=== PATIENT | male | born 1955 | race Caucasian/White ===

== ENCOUNTER 2022-11-01 15:46 | Emergency (ER) | payer OTHER, SELFPAY ==
--- NOTE | ~2022-11-01 | XR_ITS ---
EXAMINATION: XR SOFT TISSUE NECK CLINICAL INDICATION: Foreign body evaluation. Patient at dentist when object fell into throat. COMPARISON: None available. TECHNIQUE: 2 views of the soft tissue neck were obtained. FINDINGS: A metallic instrument of 2.9 cm in length is seen within the neck at the level of the right vallecula. There are no other foreign bodies within soft tissues of the neck or upper chest. No soft tissue emphysema or pneumomediastinum. The epiglottis and aryepiglottic folds are normal. The cervical vertebra have normal height and alignment. No prevertebral soft tissue swelling. Mild and moderate discovertebral degenerative changes are seen within the visualized cervical and thoracic spine. XR/XR soft tissue neck IMPRESSION: The metallic foreign body appears to be within the right vallecula.
--- NOTE | ~2022-11-01 | XR_ITS ---
EXAMINATION: XR CHEST 2 VIEW CLINICAL INFORMATION: Swallowed dental stephen COMPARISON: None TECHNIQUE: PA and lateral views of the chest obtained. FINDINGS: The lungs are clear. There are no pleural effusions. The cardiomediastinal silhouette is normal. No radiopaque foreign body is detected. XR/XR chest 2V IMPRESSION: No acute cardiopulmonary disease.
--- NOTE | ~2022-11-01 | XR_ITS ---
EXAMINATION: XR ABDOMEN KUB CLINICAL INDICATION: Swallowed dental stephen COMPARISON: None available. TECHNIQUE: AP view of the abdomen. FINDINGS: The bowel gas pattern is normal with no evidence of ileus or obstruction. No unusual soft tissue calcifications are noted. The bones are unremarkable. No radiopaque foreign body. There are splenic artery calcifications. A clip is noted in the left lower quadrant of the abdomen. XR/XR KUB IMPRESSION: Unremarkable examination. No radiopaque foreign body.
[2022-11-01 15:53] VITALS: BP 169/61; PULSE 74; RESP 18; TEMP 37.1; O2SAT 96; BMI 34.0
--- NOTE | 2022-11-01 15:55 | ED_ITS ---
HPI - Skin/Abscess/Foreign Bdy General Chief complaint: Dental/Oral Stated complaint: ?swallowed a dental but..sent from office Time Seen by Provider: 11/01/22 18:27 Related Data Allergies Allergy/AdvReac Type Severity Reaction Status Date / Time No Known Allergies Allergy Verified 11/01/22 15:56 Review of Systems 2 Constitutional: Constitutional: Reports no additional constitutional complaints Eyes: Eyes: Reports no additional eye complaints ENT: Denies dysphagia, Denies hoarseness, Denies odynophagia, Reports sore throat, Denies throat swelling and Denies tongue swelling Cardiovascular: Cardiovascular: Reports no additional cardiovascular complaints Respiratory: Respiratory: Reports no additional respiratory complaints Gastrointestinal: Gastrointestinal: Denies dysphagia and Denies odynophagia Musculoskeletal: Musculoskeletal: Reports no additional musculoskeletal complaints Allergic/Immunologic: Allergic/Immunologic: Denies throat swelling and Denies tongue swelling PMFSH Social History Social History Advance Directives: No Advance Directives Information Provided: No Physical Exam 2 Vital Signs: Vital Signs: Last Vital Signs Temp 98.7 F 11/01/22 15:53 Pulse 74 11/01/22 15:53 Resp 18 11/01/22 15:53 BP 169/61 H 11/01/22 15:53 Pulse Ox 96 11/01/22 15:53 O2 Del Method Room Air 11/01/22 15:53 BMI result Body Mass Index 34.0 Const: General: healthy appearing, no acute distress and well developed N utritional Appearance: well nourished Orientation/consciousness: patient oriented x3 HEENT: Head: Yes normal to inspection, Yes normocephalic and Yes atraumatic Face and sinus: Yes normal facial exam Mouth: Normal oral and palatal mucosa present Throat: Yes posterior oropharynx normal, Yes tonsils normal and Yes uvula midline Eyes: General: appearance normal, both eyes and all related structures Neck: Neck: Yes normal visual inspection, Yes full ROM and Yes trachea midline Thyroid: Thyroid normal Resp: Effort & Inspection: normal respiratory effort, able to speak in complete sentences, no tracheal deviation and symmetric chest movement A uscultation: clear to auscultation bilaterally Cardio: Rate: regular rate Heart sounds: S1 normal heart sound present and S2 normal heart sound present GI: Inspection: Yes normal to inspection and No distended Palpation (GI): S oft to palpation, not firm, nontender and No hepatosplenomegaly present A uscultation: normal bowel sounds : General: Yes no CVA tenderness Back/Spine/Pelvis: Back: no CVA tenderness Skin: General skin exam: elasticity normal, turgor normal and dry skin Neuro: General: patient oriented x3 Psych: Appearance: grossly normal Mental Status: mental status grossly normal Speech and movement: Normal speech and movement present Course Course Course Narrative: SHELLEY15:55PM - 67yoM with a PMHx of diabetes and hypertension who is presenting to the ER after he was referred by [facility] dental Dr. Albright [phone] sent him here due to he accidentally swallowed a dental bur prior to arrival while she was doing dental extraction. She is very concerned reports that she knows he swallowed and will need surgery. He denies any symptoms at this time. He has not eaten or drank her anything. Plan: Labs, EKG, chest x-ray and KUB patient will be seen in the ED for further evaluation treatment. 67-year-old male with past medical history of hypertension, diabetes is he here today after sent by his dentist for possible dental bur lodged in his throat, questioning passing to small bowel. KUB and chest x-ray evaluated and negative for foreign body. Patient reports that he feels something in his throat. Will send him for soft tissue neck x-ray. Patient is not drooling. Able to swallow saliva without any issues. Throat examined, no foreign object seen in the oropharynx. Patient's last meal was at noon time. Patient denies any nausea or vomiting. Patient reports that he had no bowel movement since his dental procedure. Reevaluation(s) Reevaluation #1: reviewed patient x-ray of soft tissue neck and foreign body noted in patient's throat. Spoke with Dr. Zarate, call out to photo lab manager Dr. Hopkins who will come in to do upper endoscopy. Spoke with patient. Patient continues to feel occasionally object in his throat. Patient continues to have no dysphagia or odynophagia. Has been NPO for over 7 hours now. Medical Decision Making Lab Data 11/01/22 16:23 11/01/22 16:23 Labs: Lab Results 11/01/22 11/01/22 Range/Units 16:20 16:23 WBC 8.0 (4.8-10.8) X10*3/uL RBC 4.94 (4.60-5.80) X10*6/uL Hgb 14.7 (14.0-18.0) g/dl Hct 42.0 (42.0-52.0) % MCV 85.0 (80.0-98.0) fL MCH 29.8 (27.0-33.0) pg MCHC 35.0 (31.0-36.0) g/dl RDW 12.3 (11.0-16.0) % Plt Count 200 (160-400) X10*3/uL MPV 10.2 (9.4-12.4) fL Immature Gran % (Auto) 0.3 (0.0-0.4) % Neut % (Auto) 54.9 (45-73) % Lymph % (Auto) 34.2 (20-40) % [place] % (Auto) 8.0 (2-11) % Eos % (Auto) 1.1 (0-4) % Baso % (Auto) 1.5 (0-2) % Lymph # (Auto) 2.7 (1.2-4.9) X10*3/uL [place] # (Auto) 0.6 (0.1-1.2) X10*3/uL Eos # (Auto) 0.1 (0.0-0.4) X10*3/uL Baso # (Auto) 0.1 (0.0-0.2) X10*3/uL Abs Immat Gran (auto) 0.02 (0.00-0.03) X10*3/uL Absolute Neuts (auto) 4.4 (2.0-8.3) x10*3/uL Absolute Nucleated RBC 0.000 (0.0-0.012) X10*3/uL Nucleated RBC % (auto) 0.0 (0.0-0.2) /100WBC PT 12.1 (11.1-13.3) SEC INR 1.0 (0.9-1.1) Sodium 142 (135-145) mmol/L Potassium 3.6 (3.3-5.1) mmol/L Chloride 105 (96-108) mmol/L Carbon Dioxide 29 (22-29) mmol/L Anion Gap 12 (12-20) BUN 35 H (9-16) mg/dL Creatinine 1.47 H (0.5-1.4) mg/dL Estim Creat Clear Calc 56.4 Estimated GFR 47 Random Glucose 142 H (60-115) mg/dL Calcium 8.8 (8.4-10.2) mg/dL Magnesium 2.0 (1.6-2.6) mg/dL Total Bilirubin 0.5 (0.0-1.0) mg/dL AST 23 (5-37) U/L ALT 20 (0-40) U/L Alkaline Phosphatase 83 (39-117) U/L Total Protein 6.9 (6.5-8.0) g/dL Albumin 3.5 (3.5-5.0) g/dL COVID-19 (EVETTE) Negative (Negative) COVID-19 Clin Com See Note Independent Interpretation I performed an independent interpretation of an: Plain X-Ray Radiology Impression Discussion of test interpretation with radiology: I have reviewed the radiologist's reading. Radiologist Impression: FINDINGS: The lungs are clear. There are no pleural effusions. The cardiomediastinal silhouette is normal. No radiopaque foreign body is detected. XR/XR chest 2V IMPRESSION: FINDINGS: The bowel gas pattern is normal with no evidence of ileus or obstruction. No unusual soft tissue calcifications are noted. The bones are unremarkable. No radiopaque foreign body. There are splenic artery calcifications. A clip is noted in the left lower quadrant of the abdomen. XR/XR KUB IMPRESSION: Unremarkable examination. No radiopaque foreign body. No acute cardiopulmonary disease. Discharge Plan Discharge Clinical Impression: Foreign body (FB) in soft tissue Patient Disposition: Still a Patient Instructions: Soft Tissue Foreign Body (ED)
--- NOTE | 2022-11-01 15:57 | ECG_ITS ---
Test Reason : MEDICAL CLEARENCE Blood Pressure : / mmHG Vent. Rate : 069 BPM Atrial Rate : 069 BPM P-R Int : 212 ms QRS Dur : 104 ms QT Int : 420 ms P-R-T Axes : 026 010 107 degrees QTc Int : 450 ms Sinus rhythm with 1st degree A-V block Minimal voltage criteria for LVH, may be normal variant ( Forest product ) T wave abnormality, consider lateral ischemia Abnormal ECG No previous ECGs available Referred By: Liliya Perry Electronically Signed By:CORINNE MARY
[2022-11-01 16:31] LABS: MANUAL DIFF FLAG NO
[2022-11-01 16:44] LABS: Basophils Absolute Auto 0.1 X10*3/uL (0.0-0.2); Basophils Percent Auto 1.5 % (0-2); Eosinophils Absolute Auto 0.1 X10*3/uL (0.0-0.4); Eosinophils Percent Auto 1.1 % (0-4); Hemoglobin 14.7 g/dl (14.0-18.0); Imm Gran Abs Auto 0.02 X10*3/uL (0.00-0.03); Imm Gran Pct Auto 0.3 % (0.0-0.4); Lymphocytes Absolute Auto 2.7 X10*3/uL (1.2-4.9); Lymphocytes Percent Auto 34.2 % (20-40); Mean Corpuscular Hemoglobin 29.8 pg (27.0-33.0); Mean Platelet Volume 10.2 fL (9.4-12.4); Monocytes Absolute Auto 0.6 X10*3/uL (0.1-1.2); Neutrophils Absolute Auto 4.4 x10*3/uL (2.0-8.3); Neutrophils Percent Auto 54.9 % (45-73); Platelet Count 200 X10*3/uL (160-400); Red Blood Count 4.94 X10*6/uL (4.60-5.80); Red Cell Distribution Width 12.3 % (11.0-16.0)
[2022-11-01 16:47] LABS: Prothrombin Time 12.1 SEC (11.1-13.3)
[2022-11-01 16:48] LABS: Alanine Aminotransferase 20 U/L (0-40); Albumin Level 3.5 g/dL (3.5-5.0); Alkaline Phosphatase 83 U/L (39-117); Anion Gap 12 (12-20); Aspartate Amino Transferase 23 U/L (5-37); Bilirubin Total 0.5 mg/dL (0.0-1.0); Blood Urea Nitrogen 35 mg/dL (9-16); Calcium 8.8 mg/dL (8.4-10.2); Carbon Dioxide 29 mmol/L (22-29); Chloride 105 mmol/L (96-108); Creatinine Clr Calc Pharmacy 56.4; Estimated Glomerular Filt Rate 47; Glucose Random 142 mg/dL (60-115); Potassium 3.6 mmol/L (3.3-5.1); Sodium 142 mmol/L (135-145); Total Protein 6.9 g/dL (6.5-8.0)
[2022-11-01 17:05] LABS: COVID-19 Test Negative (Negative); IDNOW Serial# 08D9AD1C
--- NOTE | 2022-11-01 19:04 | PC.NURSE ---
provider BOTTOM SPRAYER went to bed to eber pt- md perez spoke w provider to discuss. pt airway intact. talking. +CMS
[2022-11-01 19:50] VITALS: BP 178/86; PULSE 64; RESP 16; TEMP 36.7; O2SAT 98
--- NOTE | 2022-11-01 20:07 | HO.ANESPROP2 ---
[facility] Active Problems Active Problems: All Active Problems (Updated 11/01/22 @ 19:26 by Chiara Morrow, [facility]) Foreign body (FB) in soft tissue (Acute) diabetes,high blood pressure Past Medical History Functional capacity: independent ambulation Family History Family history of problems with anesthesia: No Surgical History History of Problems with Anesthesia: No Social History Social History Advance Directives: No Advance Directives Information Provided: No Meds Allergies Allergy/AdvReac Type Severity Reaction Status Date / Time No Known Allergies Allergy Verified 11/01/22 15:56 Exam Exam Date and Time: November 01, 20222006 Height,Weight and Vital Signs: Height 5 ft 9 in Weight 104.326 kg Last Vital Signs Temp 98.0 F 11/01/22 19:50 Pulse 64 11/01/22 19:50 Resp 16 11/01/22 19:50 BP 178/86 H 11/01/22 19:50 Pulse Ox 98 11/01/22 19:50 O2 Del Method Room Air 11/01/22 19:50 Pertinent Lab Results Pertinent Lab Results: Laboratory Tests 11/01/22 11/01/22 16:20 16:23 WBC 8.0 RBC 4.94 Hgb 14.7 Hct 42.0 MCV 85.0 MCH 29.8 MCHC 35.0 RDW 12.3 Plt Count 200 MPV 10.2 Immature Gran % (Auto) 0.3 Neut % (Auto) 54.9 Lymph % (Auto) 34.2 [place] % (Auto) 8.0 Eos % (Auto) 1.1 Baso % (Auto) 1.5 Lymph # (Auto) 2.7 [place] # (Auto) 0.6 Eos # (Auto) 0.1 Baso # (Auto) 0.1 Abs Immat Gran (auto) 0.02 Absolute Neuts (auto) 4.4 Absolute Nucleated RBC 0.000 Nucleated RBC % (auto) 0.0 PT 12.1 INR 1.0 Sodium 142 Potassium 3.6 Chloride 105 Carbon Dioxide 29 Anion Gap 12 BUN 35 H Creatinine 1.47 H Estim Creat Clear Calc 56.4 Estimated GFR 47 Random Glucose 142 H Calcium 8.8 Magnesium 2.0 Total Bilirubin 0.5 AST 23 ALT 20 Alkaline Phosphatase 83 Total Protein 6.9 Albumin 3.5 COVID-19 (EVETTE) Negative COVID-19 Clin Com See Note Airway Mallampati Class: II TM Dist: >3cm Neck ROM: Full Heart: RRR Lungs: CTA Assessment and Plan Final Anesthetic Review Family History of Problems with Anesthesia: No History of Problems with Anesthesia: No NPO: Yes ASA Class: II and Emergency Final Preanesthetic Review: Meds/Allgs Chart Reviewed, Consent Obtained/Reviewed and Anes Risks/Benef Reviewed Patient Risk: Low Procedure Risk: Low Anesthetic Plan Anesthetic Plan: GA Disposition: Standard PACU
--- NOTE | 2022-11-01 20:15 | PC.NURSE ---
attempted x2 by rn- asked actuarial intern to attempt. pt changed into pt gown and belongings sheet done
--- NOTE | 2022-11-01 20:20 | PC.NURSE ---
gave report to jewel hole cornerer
--- NOTE | 2022-11-01 20:35 | P.CNGI_ITS ---
History of Present Illness Data of Consult Service Date: 11/01/22 Requesting physician: Karla Zarate Primary Care Provider: Neelima Doyle MD HPI 67-year-old male with hypertension, diabetes sent to [facility] by his dentist for possible dental bur lodged in his throat, questioning passing to small bowel. KUB and chest x-ray evaluated and negative for foreign body. Patient reports that he feels something in his throat. Able to swallow saliva without any issues. Throat examined, no foreign object seen in the oropharynx. Patient's last meal was at noon time. Patient denies any nausea or vomiting. Patient reports that he had no bowel movement since his dental procedure. Pt denies snoring or sleep apnea. XRAY SOFT TISSUES OF NECK SHOWED: A metallic instrument of 2.9 cm in length is seen within the neck at the level of the right vallecula. There are no other foreign bodies within soft tissues of the neck or upper chest. No soft tissue emphysema or pneumomediastinum. The epiglottis and aryepiglottic folds are normal. Review of Systems 2 Review of Systems: Yes all other systems are reviewed and are negative [facility] Social History Social History Advance Directives: No Advance Directives Information Provided: No Meds Allergies Allergy/AdvReac Type Severity Reaction Status Date / Time No Known Allergies Allergy Verified 11/01/22 15:56 Physical Exam 2 Vital Signs: Vital Signs: Last Vital Signs Temp 98.0 F 11/01/22 19:50 Pulse 64 11/01/22 19:50 Resp 16 11/01/22 19:50 BP 178/86 H 11/01/22 19:50 Pulse Ox 98 11/01/22 19:50 O2 Del Method Room Air 11/01/22 19:50 BMI result Body Mass Index 34.0 Const: General: healthy appearing and no acute distress Nutritional Appearance: obese Orientation/consciousness: patient oriented x3 L imitations: no limitations HEENT: Head: Yes normal to inspection Ears: hearing grossly normal bilaterally Mouth: Normal oral and palatal mucosa present Eyes: Sclerae: sclerae normal Pupils: Equal, round and reactive pupils present Neck: Neck: Yes normal visual inspection Chest: Chest palpation & inspection: normal inspection of the chest Resp: Effort & Inspection: normal respiratory effort Auscultation: clear to auscultation bilaterally Cardio: Palpation: normal PMI Rate: regular rate Rhythm: regular rhythm Heart sounds: S1 normal heart sound present, S2 normal heart sound present and no murmurs GI: Palpation (GI): Soft to palpation, nontender and No hepatosplenomegaly present Auscultation: normal bowel sounds Rectal Exam - Male: Yes deferred Skin: General skin exam: no rashes or lesions noted Neuro: General: patient oriented x3, gait normal and moves all extremities Cranial nerves: Yes Equal, round and reactive pupils present Psych: Appearance: grossly normal Mental Status: mental status grossly normal Results Labs 11/01/22 16:23 11/01/22 16:23 Labs: Short CBC 11/01/22 Range/Units 16:23 WBC 8.0 (4.8-10.8) X10*3/uL Hgb 14.7 (14.0-18.0) g/dl Hct 42.0 (42.0-52.0) % Plt Count 200 (160-400) X10*3/uL BMP 11/01/22 16:23 Sodium 142 Potassium 3.6 Chloride 105 Carbon Dioxide 29 BUN 35 H Creatinine 1.47 H Calcium 8.8 Liver Function 11/01/22 Range/Units 16:23 Total Bilirubin 0.5 (0.0-1.0) mg/dL AST 23 (5-37) U/L ALT 20 (0-40) U/L Alkaline Phosphatase 83 (39-117) U/L Albumin 3.5 (3.5-5.0) g/dL Assessment and Plan (1) Foreign body (FB) in soft tissue: Status: Inactive Plan 67-year-old male with hypertension, diabetes sent to [facility] by his dentist for possible dental bur lodged in his throat, RECOMMENDATIONS: Proceed with EGD to visualize and remove the FB Procedure and potential complications were reviewed with the patient. Time Spent With Patient Time: Total time managing care of this patient today ____ minutes. Procedures Date of Service Date of Service: 11/03/22
--- NOTE | 2022-11-01 20:39 | PC.NURSE ---
aox4. calm, coop. piv placed in l hand by antoinette rn- c/d/i. heading to procedure at this time. no distress. airway intact, +CSM, +VS. talks well. no diff swallowing, handles secretions.
[2022-11-01 20:44] LABS: Glucose, Whole Blood 114 mg/dL (60-115)
--- NOTE | 2022-11-01 21:30 | PM.PROC ---
Brief Operative Note Date of procedure: 11/01/22 Pre-op diagnosis: Esophageal foreign body Post-op diagnosis: other (Esophageal foreign body, GERD) Procedure: FLEXIBLE TRANSORAL UPPER GASTROINTESTINAL ENDOSCOPY WITH BIOPSIES Pre-op diagnosis: Esophageal foreign body Post-op diagnosis: Esophageal foreign body, GERD Endoscopist:Yovani Hopkins MD Anesthesia:?MAC Consent: Indications for the procedure and potential complications of bleeding, perforation, reaction to medications and missed diagnosis were discussed with the patient and informed consent was obtained. Instrument: Olympus GIF H 190 mid size upper endoscope Monitoring: Vital signs and clinical assessment, continuous EKG monitoring, Pulse oximetry, Carbon Dioxide monitoring and blood pressure monitoring were done throughout the procedure. Procedure: The patient was placed in the left lateral decubitis position and pre-procedure medications were administered and a bite block was placed. The endoscope was inserted into the mouth and advanced under direct vision to the third part of duodenum. A careful inspection was made as the upper endoscope was withdrawn including a retroflexed examination of the proximal stomach; Findings and interventions are described below. Findings: Larynx: ET tube in place Esophagus: A 2.5 cms metal stephen noted in the mid esophagus. Foreign body was grabbed with a rat tooth forceps from the proximal end and removed carefully with the endoscope. GE junction at 40 cms. Two 1 cms tongues of suspected Smith's - biopsies were obtained. Stomach: Normal gastric mucosa. Grade 2 flap valve on retroflexed examination of the cardia. Duodenum: Normal bulb and descending duodenum Intervention: Biopsies as noted above Impression and Post Procedure Diagnosis: Endoscopy Findings: ESOPHAGUS: A 2.5 cms metal stephen noted in the mid esophagus. Foreign body was grabbed with a rat tooth forceps from the proximal end and removed carefully with the endoscope. GE junction at 40 cms. Two 1 cms tongues of suspected Smith's - biopsies were obtained. Plan: I will send a letter with pathology results Above findings were reviewed with the patient. Anesthesia: GETA
[2022-11-01 21:34] VITALS: BP 167/80; PULSE 74; RESP 18; TEMP 36.3; O2SAT 97
[2022-11-01 21:39] VITALS: BP 163/74; PULSE 75; RESP 18; O2SAT 96
--- NOTE | 2022-11-01 21:42 | HO.POSTANES ---
Post Anesthesia Evaluation Post Anesthesia Evaluation Date of Service: 11/01/22 Vital Signs: Vital Signs Temp Pulse Resp BP Pulse Ox O2 Del Method 11/01/22 21:39 75 18 163/74 H 96 Room Air 11/01/22 21:34 97.4 F 74 18 167/80 H 97 Room Air 11/01/22 19:50 98.0 F 64 16 178/86 H 98 Room Air 11/01/22 15:53 98.7 F 74 18 169/61 H 96 Room Air Anesthesia: General Endotracheal-GETA Mental Status: Awake Pain Control: Satisfactory Nausea/Vomiting: None Hydration: Adequate Anesthesia-Related Issues: No Anes. Related Issues
[2022-11-01 21:44] VITALS: BP 164/79; PULSE 77; RESP 18; O2SAT 97
[2022-11-01 21:49] VITALS: BP 160/64; PULSE 74; RESP 18; TEMP 36.1; O2SAT 97
== END 2022-11-01 22:00 | disposition home or self-care (01) ==
PROVIDERS: Internal Medicine Gastroenterology; Physician Assistant Medical; Emergency Provider Emergency Medicine; PCP Internal Medicine
PROC: 0DJ08ZZ Inspection of Upper Intestinal Tract, Via Natural or Artificial Opening Endoscopic (ICD-10-PCS; CPT 43235; principal; 2022-11-01 20:30)
DX: T17.298A Other foreign object in pharynx causing other injury, initial encounter (principal); Y92.531 Health care provider office as the place of occurrence of the external cause; M79.5 Residual foreign body in soft tissue; K21.9 Gastro-esophageal reflux disease without esophagitis; R13.10 Dysphagia, unspecified; R94.31 Abnormal electrocardiogram [ECG] [EKG]; I44.0 Atrioventricular block, first degree; Y93.9 Activity, unspecified; Y92.9 Unspecified place or not applicable; Y99.9 Unspecified external cause status; Z20.822 Contact with and (suspected) exposure to COVID-19; Z20.828 Contact with and (suspected) exposure to other viral communicable diseases; Z79.899 Other long term (current) drug therapy
CPT/HCPCS: 43247; 43239; 70360; 71046; 74018; 80053; 82947; 83735; 85025; 85610; 87635; 88305; 93005; 99284; 99285

== ENCOUNTER → 2022-11-01 18:27 | Outpatient (BNV) | payer OTHER, SELFPAY | PROVIDERS: Emergency Provider Emergency Medicine; PCP Internal Medicine; Visit Provider Internal Medicine Gastroenterology | DX: M79.5 Residual foreign body in soft tissue (principal); K21.9 Gastro-esophageal reflux disease without esophagitis; K22.70 Barrett's esophagus without dysplasia | CPT/HCPCS: 43239; 43247; 99283 ==